=== PATIENT | female | born 1990 | race Caucasian/White ===

== ENCOUNTER 2017-02-15 13:10 | Emergency (ER) | payer OTHER ==
[~2017-02-15] VITALS: Ht 162.6 cm; Wt 62.0 kg
[~2017-02-15 13:10] MED LIST: AUGMENTIN875TAB PO; FOLIC ACID1 MG PO; IRON325 MG PO; PRENATAL1 TA1 PO; PREVPAC PO; PRILOSEC20 MG PO
[2017-02-15] MEDS ORDERED: MOTRIN800 MG PO (14:30)
[2017-02-15] MEDS ORDERED: LORTAB 5-325 MG1 TAB PO (14:30)
[2017-02-15] MEDS ORDERED: FLEXERIL PO (14:30)
[2017-02-15 14:40] VITALS: BP 139/74
== END 2017-02-15 14:40 | disposition home or self-care (01) | DRG 552 ==
LOC: ED 13:10
DX: M43.6 Torticollis (principal); J45.909 Unspecified asthma, uncomplicated

== ENCOUNTER 2017-10-26 18:44 | Emergency (ER) | payer OTHER ==
[~2017-10-26] VITALS: Ht 162.6 cm; Wt 73.0 kg
[~2017-10-26 18:44] MED LIST changes: +FLEXERIL PO; +LORTAB 5-325 MG1 TAB PO; +MOTRIN800 MG PO
[2017-10-26] MEDS ORDERED: PRENATA3 PO (19:12)
[2017-10-26 19:26] LABS: HEMATOCRIT 35.4 % (37.0-47.0); IMMATURE GRANULOCYTES 0.2 % (0.0-1.0); MEAN CELL VOLUME 88.7 fL CALC (80.0-100.0); MEAN CORPUSCULAR HGB 30.1 pG CALC (26.0-32.0); MEAN CORPUSCULAR HGB CONC 33.9 g/L CALC (32.0-36.0); NEUT# 3.95 thou/uL (2.00-7.15); RED BLOOD COUNT 3.99 mill/uL (4.20-5.60); RED CELL DISTRI WIDTH 12.4 % (11.5-15.5)
[2017-10-26 19:40] LABS: ALBUMIN 4.2 g/dL (3.2-5.0); ALKALINE PHOSPHATASE 69 u/l (38-126); ANION GAP 18 (6-22 (CALC)); BILIRUBIN, TOTAL 0.3 mg/dL (0.0-1.4); BUN 12 mg/dL (7-17); BUN/CREATININE RATIO 16 (12-20 (CALC)); CARBON DIOXIDE 21 mmol/l (22-30); CHLORIDE 107 mmol/l (95-108); CREATININE 0.7 mg/dL (0.5-1.0); GFR > 60 ML/MIN (>=60 (CALC)); GFR FOR AFR.AMER. > 60 ML/MIN (>=60 (CALC)); LIPASE 87 u/l (23-300); POTASSIUM 3.9 mmol/l (3.5-5.1); SGOT/AST 26 u/l (14-36); SGPT/ALT 23 u/l (9-52); SODIUM 143 mmol/l (137-146); TOTAL PROTEIN 7.8 g/dL (6.3-8.2)
[2017-10-26 20:02] LABS: URINE BILIRUBIN - DIPSTICK NEGATIVE (NEGATIVE); URINE BLOOD DIPSTICK NEGATIVE (NEGATIVE); URINE COLOR YELLOW; URINE GLUCOSE - DIPSTICK NEGATIVE (NEGATIVE); URINE KETONE NEGATIVE (NEGATIVE); URINE LEUK ESTERASE NEGATIVE (NEGATIVE); URINE NITRITE - DIPSTICK NEGATIVE (Negative); URINE PROTEIN - DIPSTICK NEGATIVE (NEG-TRACE)
[2017-10-26 20:05] LABS: URINE CLARITY CLEAR
[2017-10-26 20:17] VITALS: BP 148/76
== END 2017-10-26 20:22 | disposition home or self-care (01) | DRG 781 ==
LOC: ED 18:44
PROVIDERS: Emergency Medicine
DX: O26.891 Other specified pregnancy related conditions, first trimester (principal); R07.89 Other chest pain; Z3A.10 10 weeks gestation of pregnancy

== ENCOUNTER 2017-12-25 12:14 | Emergency (ER) | payer OTHER ==
[~2017-12-25] VITALS: Ht 162.6 cm; Wt 64.0 kg
[~2017-12-25 12:14] MED LIST changes: +PRENATA3 PO
[2017-12-25 14:48] LABS: HEMATOCRIT 30.7 % (37.0-47.0); IMMATURE GRANULOCYTES 0.3 % (0.0-1.0); MEAN CORPUSCULAR HGB 27.2 pG CALC (26.0-32.0); MEAN CORPUSCULAR HGB CONC 31.6 g/L CALC (32.0-36.0); NEUT# 4.99 thou/uL (2.00-7.15); RED BLOOD COUNT 3.57 mill/uL (4.20-5.60); RED CELL DISTRI WIDTH 12.5 % (11.5-15.5)
[2017-12-25 14:50] LABS: HEMOGLOBIN 9.7 g/dl (12.0-16.0)
[2017-12-25 15:08] LABS: ALKALINE PHOSPHATASE 90 u/l (38-126); ANION GAP 19 (6-22 (CALC)); BILIRUBIN, TOTAL 0.4 mg/dL (0.0-1.4); BUN 8 mg/dL (7-17); BUN/CREATININE RATIO 13 (12-20 (CALC)); CARBON DIOXIDE 24 mmol/l (22-30); CHLORIDE 103 mmol/l (95-108); CREATININE 0.6 mg/dL (0.5-1.0); GFR > 60 ML/MIN (>=60 (CALC)); GFR FOR AFR.AMER. > 60 ML/MIN (>=60 (CALC)); LIPASE 60 u/l (23-300); POTASSIUM 3.6 mmol/l (3.5-5.1); SGOT/AST 14 u/l (14-36); SGPT/ALT 26 u/l (9-52); SODIUM 143 mmol/l (137-146); TOTAL PROTEIN 8.2 g/dL (6.3-8.2)
[2017-12-25 15:08] LABS: URINE BILIRUBIN - DIPSTICK NEGATIVE (NEGATIVE); URINE BLOOD DIPSTICK TRACE-INTACT (NEGATIVE); URINE COLOR YELLOW; URINE GLUCOSE - DIPSTICK NEGATIVE (NEGATIVE); URINE KETONE NEGATIVE (NEGATIVE); URINE NITRITE - DIPSTICK NEGATIVE (Negative); URINE PH 5.5 (4.5-8.0); URINE PROTEIN - DIPSTICK NEGATIVE (NEG-TRACE); URINE SPECIFIC GRAVITY <=1.005; URINE UROBILINOGEN - DIPSTICK 0.2 E.U./dL (0.2)
[2017-12-25 15:21] LABS: URINE CLARITY CLEAR; URINE LEUK ESTERASE MODERATE (NEGATIVE)
[2017-12-25 16:10] LABS: URINE BACTERIA RARE hpf; URINE SQUAMOUS EPITHELIAL CELL FEW EPI/hpf (0-FEW); URINE WBC 20-50 WBC/hpf (0-5)
[2017-12-25 16:13] VITALS: BP 112/69
[2017-12-25] MEDS ORDERED: BACTRIM DS1 TAB PO (16:15)
== END 2017-12-25 16:23 | disposition home or self-care (01) | DRG 690 ==
LOC: ED 12:14
PROVIDERS: Family Medicine
DX: N39.0 Urinary tract infection, site not specified (principal); B96.20 Unspecified Escherichia coli [E. coli] as the cause of diseases classified elsewhere; N83.201 Unspecified ovarian cyst, right side; R10.11 Right upper quadrant pain; R10.31 Right lower quadrant pain; R07.81 Pleurodynia
CPT/HCPCS: Q9967

== ENCOUNTER 2019-04-08 01:33 | Emergency (ER) | payer OTHER ==
[~2019-04-08] VITALS: Ht 162.6 cm; Wt 63.6 kg
[~2019-04-08 01:33] MED LIST changes: +BACTRIM DS1 TAB PO
[2019-04-08 02:32] LABS: HEMOGLOBIN 11.7 g/dl (12.0-16.0); IMMATURE GRANULOCYTES 0.3 % (0.0-5.0); MEAN CELL VOLUME 85.2 fL CALC (80.0-100.0); MEAN CORPUSCULAR HGB 28.5 pG CALC (26.0-32.0); MEAN CORPUSCULAR HGB CONC 33.4 g/L CALC (32.0-36.0); NEUT# 7.91 thou/uL (2.00-7.15); RED BLOOD COUNT 4.11 mill/uL (4.20-5.60); RED CELL DISTRI WIDTH 13.4 % (11.5-15.5)
[2019-04-08 02:50] LABS: ALKALINE PHOSPHATASE 85 u/l (38-126); AMYLASE 55 u/l (30-110); ANION GAP 17 (6-22 (CALC)); BILIRUBIN, TOTAL 0.7 mg/dL (0.0-1.4); BUN 13 mg/dL (7-17); BUN/CREATININE RATIO 19 (12-20 (CALC)); CARBON DIOXIDE 23 mmol/l (22-30); CHLORIDE 107 mmol/l (95-108); CREATININE 0.7 mg/dL (0.5-1.0); GFR > 60 ML/MIN (>=60 (CALC)); GFR FOR AFR.AMER. > 60 ML/MIN (>=60 (CALC)); LIPASE 61 u/l (23-300); SGOT/AST 24 u/l (14-36); SODIUM 142 mmol/l (137-146); TOTAL PROTEIN 8.9 g/dL (6.3-8.2)
[2019-04-08 03:28] LABS: URINE BILIRUBIN - DIPSTICK NEGATIVE (NEGATIVE); URINE BLOOD DIPSTICK NEGATIVE (NEGATIVE); URINE COLOR YELLOW; URINE GLUCOSE - DIPSTICK NEGATIVE (NEGATIVE); URINE KETONE NEGATIVE (NEGATIVE); URINE LEUK ESTERASE NEGATIVE (NEGATIVE); URINE NITRITE - DIPSTICK NEGATIVE (Negative); URINE PH 6.5 (4.5-8.0); URINE PROTEIN - DIPSTICK NEGATIVE (NEG-TRACE); URINE UROBILINOGEN - DIPSTICK 0.2 E.U./dL (0.2)
[2019-04-08] MEDS ORDERED: LORTAB 5/3255 MG PO (04:22)
[2019-04-08] MEDS ORDERED: TAMSULOSIN0.4 MG PO (04:22)
[2019-04-08 05:00] VITALS: BP 136/88
== END 2019-04-08 05:00 | disposition home or self-care (01) | DRG 694 ==
LOC: ED 01:33
PROVIDERS: Family Medicine
DX: N13.2 Hydronephrosis with renal and ureteral calculous obstruction (principal)

== ENCOUNTER 2021-09-17 17:10 | Emergency (ER) | payer OTHER, MEDICAID ==
[~2021-09-17] VITALS: Ht 162.6 cm; Wt 70.0 kg
[~2021-09-17 17:10] MED LIST changes: +LORTAB 5/3255 MG PO; +TAMSULOSIN0.4 MG PO
[2021-09-17] MEDS ORDERED: NAPROXEN500 MG PO (18:59)
[2021-09-17 19:30] VITALS: BP 166/85
== END 2021-09-17 19:45 | disposition home or self-care (01) | DRG 563 ==
LOC: ED 17:10
DX: S83.92XA Sprain of unspecified site of left knee, initial encounter (principal); F32.A Depression, unspecified; W22.03XA Walked into furniture, initial encounter